=== PATIENT | female | born 1975 | race Caucasian/White ===

== ENCOUNTER 2020-04-15 13:19 | Outpatient (CLI) | payer OTHER, SELFPAY ==
--- NOTE | ~2020-04-15 | XR_ITS ---
XR lumbar spine 2-3V DATE: 04/15/2020 13:43 INDICATION: Low back pain, pain in coccyx after injury from fall TECHNIQUE: AP, lateral, coned lateral lumbosacral views COMPARISON: None FINDINGS: There are 6 functional lumbar vertebrae. No fracture or bone destruction or spondylolisthesis. The lumbar and lumbosacral interspaces are well preserved. The sacroiliac joints are intact. IMPRESSION: No evidence of lumbar spine fracture Reviewed, dictated and finalized at location A.
--- NOTE | ~2020-04-15 | XR_ITS ---
XR sacrum coccyx min 2V DATE: 04/15/2020 13:43 INDICATION: Low back pain and coccyx pain after injury from fall TECHNIQUE: AP, lateral, coned lateral lumbosacral views COMPARISON: None FINDINGS: The sacroiliac joints are intact. On the lateral view there appears to be a subtle linear lucency and slight displacement of the anteri or cortex of the fifth sacral segment, which may represent a subtle fracture. CT would be helpful to confirm or exclude fracture or dislocation. Otherwise no fracture or bone destruction of the sacrum or coccyx is evident. IMPRESSION: Cannot exclude subtle anterior cortical fracture of the fifth sacral segment; consider CT correlation Reviewed, dictated and finalized at location A. IMPRESSION: Cannot exclude subtle anterior cortical fracture of the fifth sacra l segment; consider CT correlation
== END 2020-04-15 13:20 | disposition home or self-care (01) ==
LOC: ANHIMG 13:25
PROVIDERS: PCP Family Medicine Adolescent Medicine; Visit Provider Family Medicine Adolescent Medicine
DX: M54.5 Low back pain (principal); W19.XXXA Unspecified fall, initial encounter
CPT/HCPCS: 72100; 72220

== ENCOUNTER 2020-06-25 11:06 | Outpatient (CLI) | payer OTHER, SELFPAY ==
--- NOTE | ~2020-06-25 | XR_ITS ---
EXAMINATION: XR sacrum coccyx min 2V DATE: 06/25/2020 11:24 INDICATION: Low back pain. TECHNIQUE: 3 views of the sacrum and coccyx were obtained. COMPARISON: Sacrum and coccyx radiographs 04/15/2020 FINDINGS: Bone alignment is normal. No fracture. There is mild osteoarthritis of the sacroiliac joint s. IMPRESSION: 1. Mild osteoarthritis of the sacroiliac joints. Reviewed, dictated and finalized at location A.
--- NOTE | ~2020-06-25 | XR_ITS ---
EXAMINATION: XR lumbar spine 2-3V DATE: 06/25/2020 11:24 INDICATION: Low back pain. TECHNIQUE: 3 views of lumbar spine were obtained. COMPARISON: Lumbar spine radiographs 04/15/2020 FINDINGS: Bone alignment is normal. Vertebral body heights and intervertebral disc heights are normal . There are endplate osteophytes at multiple levels. The facet joints are unremarkable. IMPRESSION: 1. Mild lumbar spondylosis. Reviewed, dictated and finalized at location A. IMPRESSION: 1. Mild lumbar spondylosis.
== END 2020-06-25 11:07 | disposition home or self-care (01) ==
PROVIDERS: PCP Family Medicine Adolescent Medicine; Visit Provider Family Medicine Adolescent Medicine
DX: M54.5 Low back pain (principal); M47.816 Spondylosis without myelopathy or radiculopathy, lumbar region; M47.898 Other spondylosis, sacral and sacrococcygeal region
CPT/HCPCS: 72100; 72220

== ENCOUNTER → 2021-03-07 07:18 | Outpatient (CLI) | payer OTHER, SELFPAY ==
[2021-03-07 19:48] LABS: SARS-CoV-2 RNA PCR Negative
== END ==
PROVIDERS: PCP Family Medicine Adolescent Medicine; Visit Provider Physician Assistant
DX: Z20.822 Contact with and (suspected) exposure to COVID-19 (principal); R05 Cough; J34.89 Other specified disorders of nose and nasal sinuses
CPT/HCPCS: C9803; U0003; U0005

== ENCOUNTER 2021-05-29 12:42 | Emergency (ER) | payer OTHER, SELFPAY ==
--- NOTE | ~2021-05-29 | XR_ITS ---
EXAMINATION: XR chest 2V DATE: 05/29/2021 13:29 INDICATION: Cough TECHNIQUE: PA and lateral views of the chest are obtained. COMPARISON: 10/12/2011 FINDINGS: The lungs are free of acute opacities. There is no pleural effusion or pneumothorax. The ca rdiomediastinal silhouette is normal. The visualized bones and soft tissues are unremarkable. IMPRESSION: 1. No acute cardiopulmonary abnormality. Reviewed, dictated and finalized at location B.
[2021-05-29 12:49] VITALS: BP 119/77; PULSE 82; RESP 16; TEMP 36.6; O2SAT 99
--- NOTE | 2021-05-29 13:07 | ED.URI ---
HPI - URI/Sore Throat General Chief Complaint: Upper Respiratory Infection Stated Complaint: Congestion,Cough Time Seen by Provider: 05/29/21 13:07 Source: patient and RN notes reviewed Mode of arrival: ambulatory Limitations: no limitations History of Present Illness HPI Narrative: 45-year-old female presents to the [facility] with complaints of cough,Sinus pressure, Sore throat and sinus congestion. states symptoms started 1.5 weeks ago and PCM gave her a Zpac. Called PCM yesterday due to still having a cough. PCM called in some Tessalon Perles for her. States she tried taking them last night with little to no relief. Patient is a smoker. Denies any chest pain. No abdominal pain, nausea, vomiting or diarrhea. Denies fevers. Related Data Home Medications Medication Instructions Recorded Confirmed benzonatate 200 mg PO TID 05/29/21 05/29/21 Allergies Allergy/AdvReac Type Severity Reaction Status Date / Time No Known Allergies Allergy Verified 05/29/21 13:18 Review of Systems Review of Systems: All systems reviewed & are unremarkable except as noted in HPI and below Constitutional: Constitutional: Reports as per HPI, Reports chills and Denies fever(s) Eyes: Eyes: Reports no additional eye complaints ENT: Reports as per HPI, Denies dizziness, Reports nasal congestion and Reports sore throat Cardiovascular: Cardiovascular: Reports no additional cardiovascular complaints and Denies chest pain Respiratory: Respiratory: Reports as per HPI, Reports chest congestion, Reports cough and Reports dyspnea Gastrointestinal: Gastrointestinal: Reports no additional gastrointestinal complaints, Denies abdominal pain, Denies nausea and Denies vomiting Musculoskeletal: Musculoskeletal: Reports no additional musculoskeletal complaints, Denies back pain, Denies myalgias and Denies muscle cramps Integumentary/Breasts: Skin/Breast: Reports system reviewed and no additional complaints, except as docu and Denies rash Neurologic: Reports system reviewed and no additional complaints, except as documented, Denies vertigo, Denies dizziness, Denies syncope, Denies headache(s), Denies focal weakness and Denies numbness Psychiatric: Psychiatric: Reports no additional psychiatric complaints Allergic/Immunologic: Allergic/Immunologic: Reports no additional allergic/immunologic complaints, Denies lip swelling, Denies throat swelling, Denies tongue swelling and Denies wheezing PMFSH Comments At the time of my signature, I reviewed and agree with the nursing past medical, surgical, social, and family history. There is no relevant family history pertinent to the patient complaint. Exam Const: General: no acute distress, alert and ill appearing acutely Nutritional Appearance: well nourished Orientation/consciousness: patient oriented x3 Limitations: no limitations HENMT: Head: normal to inspection Ears: external ears normal and TM's normal bilaterally General nose exam: Normal external nose present Face and sinus: normal facial exam and sinuses nontender Mouth: Yes lip normal Eyes: Conjunctivae: conjunctivae normal Pupils: Equal, round and reactive pupils present Neck: Neck: normal visual inspection, no lymphadenopathy and no meningeal signs Chest: Chest palpation & inspection: normal inspection of the chest Resp: Effort & Inspection: normal respiratory effort and no use of accessory muscles Auscultation: no crackles, no rales, no rhonchi, wheezes scattered wheezes and throughout and diminished lung sounds bilateral Cardio: Rate: regular rate Rhythm: regular rhythm GI: GI Palp: Yes Soft to palpation and No Tenderness to palpation present (GI) : General: Yes no CVA tenderness Back/Spine/Pelvis: Back: no CVA tenderness Skin: General skin exam: normal color Rashes: no rashes Neuro: General: patient oriented x3, moves all extremities, no meningeal signs and no focal motor deficits Speech: normal speech Gait exam (Neuro): Rizwana
[2021-05-29] MEDS: predniSONE 20 MG TABLET PO ×2 (13:30)
[2021-05-29] MEDS: ALBUTEROL SULFATE NEB 2.5 MG/3 ML INH INHALATION (13:30)
[2021-05-29] MEDS: IPRATROPIUM BR 0.02% INH SOLN 0.5 MG/2.5 ML VIAL INHALATION (13:30)
== END 2021-05-29 14:47 | disposition home or self-care (01) ==
PROVIDERS: Emergency Provider Nurse Practitioner; PCP Family Medicine Adolescent Medicine
DX: J40 Bronchitis, not specified as acute or chronic (principal)
CPT/HCPCS: 71046; 94640; 99213; G0463; J7512

== ENCOUNTER 2021-09-02 18:31 | Emergency (ER) | payer OTHER, SELFPAY ==
--- NOTE | ~2021-09-02 | XR_ITS ---
EXAMINATION: XR chest 2V EXAM DATE: 09/02/2021 20:20 INDICATION: Sometimes prod cough x 3 months . TECHNIQUE: Frontal and lateral projections of the chest obtained and reviewed. Comparison is made to prior examination from 05/29/2021. FINDINGS: The lungs are clear. There are no pleural effusions. The cardiomediastinal silhouette is within normal limits. There is no pneumothorax suspected. The bones and soft tissues are unremarkab le. IMPRESSION: Unremarkable chest x-ray exam. Reviewed, dictated and finalized at location A.
--- NOTE | ~2021-09-02 | XR_ITS ---
EXAMINATION: XR sinus <3V EXAM DATE: 09/02/2021 20:20 INDICATION: Cough x 4 months. TECHNIQUE: Sinuses frontal and lateral projections. There are no prior studies for comparison. FINDINGS: No evidence of appreciable sinus or mastoid opacity. Please note that mild sinus disease m ay not be detectable by this modality. There may be some dental caries. The orbits and soft tissues a re unremarkable. IMPRESSION: 1. No evidence of sinus disease. Reviewed, dictated and finalized at location A.
[2021-09-02 18:49] VITALS: BP 105/73; PULSE 78; RESP 16; TEMP 36.3; O2SAT 100
--- NOTE | 2021-09-02 20:15 | ED.URI ---
HPI - URI/Sore Throat General Chief Complaint: Upper Respiratory Infection Stated Complaint: cough/sob/cp Source: patient and RN notes reviewed Limitations: no limitations History of Present Illness HPI Narrative: The vaccinated patient, who is a >1ppd smoker/nondrinker presents with persistent cough. Patient states she has had half week worsening of 2-3month history since May of cough symptoms are mild unrelieved with a steroid taper [that she is on now], inhalers, and several antibiotic courses [she recalls Amoxil, Z-Mike, Levaquin, DCN] symptoms are mild associated with clavicular chest pain when she breathes or has cough. No med noncompliance, fever measured, loss of taste/smell, CP, calf pain/edema, S OB, vomiting/diarrhea- there is mild associated hoarseness . Discussed will add new nebulized med, symptomatic antitussives; Emphasized to get scheduled PFTs, follow-up. Related Data Home Medications Medication Instructions Recorded Confirmed benzonatate 200 mg PO TID 05/29/21 05/29/21 bupropion HCl PO 09/02/21 09/02/21 Allergies Allergy/AdvReac Type Severity Reaction Status Date / Time No Known Allergies Allergy Verified 05/29/21 13:18 Review of Systems Review of Systems: General/Constitutional: No weight loss,fever Eyes: N0: Redness,discharge Ears/Nose/Throat: No: Epistaxis,ear discharge Respiratory: Denies: Hemoptysis Gastrointestinal: No Vomiting, Bleeding-rectal Skin: No Lumps, eruption Neurologic: No Focal Weakness,Sz Hematologic: Denies: Petechiae/Purpura Psychiatric: No: Suicida ideationl All Other Systems: Reviewed and Negative PMFSH Comments At time of signature, agree with nursing past medical, surgical, social and family history. There is no relevant family history pertinent to the presenting complaint Exam Narrative: General Appearance: Well appearing, Well nourished EYE: PERRLA, Conjunctiva clear Ears: Auditory canal normal, TM normal Nose: Rhinorrhea, Mucousal erythema Mouth/Throat: MM moist, Uvula midline, Pharyngeal erythema Neck: Supple, No adenopathy Respiratory: No respiratory distress, increased AP diameter, decreased BS at bases, distant BS CTA Cardiovascular: RRR, No JVD Musculoskeletal: Non tender, Normal strength Skin: Warm, Dry Neurological: A&O x3, CN II-XII intact Psychiatric: Normal mood, Normal affect Course Vital Signs Vital signs: Vital Signs Temperature 97.3 F L 09/02/21 18:49 Pulse Rate 78 09/02/21 18:49 Respiratory Rate 16 09/02/21 18:49 Blood Pressure 105/73 09/02/21 18:49 Pulse Oximetry 100 09/02/21 18:49 Temperature 97.3 F L 09/02/21 18:49 Pulse Rate 78 09/02/21 18:49 Respiratory Rate 16 09/02/21 18:49 Blood Pressure 105/73 09/02/21 18:49 Pulse Oximetry 100 09/02/21 18:49 MDM - URI/Sore Throat Lab Data Labs: Lab Results 09/02/21 Range/Units 19:20 POC SARS CoV-2 Ag Negative (Negative) Discharge Plan Discharge Clinical Impression: COPD with acute bronchitis Patient Disposition: Home, Self-Care Condition: Stable Instructions: Chronic Cough (ED) Additional Instructions: You may continue your dose inhalers, and finish your steroids See pulmonary in follow-up, with the scheduled PFTs Prescriptions: New ipratropium-albuterol 0.5 mg-3 mg(2.5 mg base)/3 mL solution for nebulization 3 ml inhalation QID PRN (Reason: shortness of breath or wheezing) Qty: 15 RF: 3 benzonatate [Tessalon Perles] 100 mg capsule 100 mg PO TID Qty: 20 RF: 1 montelukast [Singulair] 10 mg tablet 10 mg PO QPM Qty: 20 RF: 2 codeine-guaifenesin 10-100 mg/5 mL liquid 7.5 ml PO Q6H PRN (Reason: cough) Qty: 118 RF: 0 No Action benzonatate 200 mg capsule 200 mg PO TID RF: 0 prednisone 20 mg tablet See Rx Instructions .ROUTE .COMPLEX Qty: 10 RF: 0 albuterol sulfate 90 mcg/actuation HFA aerosol inhaler 2 puff inhalation QID PRN (Reason: shortness of breath or wheez
== END 2021-09-02 21:15 | disposition home or self-care (01) ==
PROVIDERS: Emergency Provider Emergency Medicine; PCP Family Medicine Adolescent Medicine
DX: J44.9 Chronic obstructive pulmonary disease, unspecified (principal); Z20.822 Contact with and (suspected) exposure to COVID-19; F17.200 Nicotine dependence, unspecified, uncomplicated
CPT/HCPCS: 70210; 71046; 87426; 99213; C9803; G0463

== ENCOUNTER 2021-09-15 08:40 | Outpatient (CLI) | payer OTHER, SELFPAY ==
--- NOTE | 2021-09-15 15:07 | WPDPFTINT ---
PFT Procedure Performed PFT Procedure Performed Spirometry with Pre/Post Bronchodilator Plethysmography (Lung Vol) Diffusing Cap (DLCO) Flow Vol Loop PFT Interpretation This is a pulmonary function test with pre and post-bronchodilator spirometry, plethysmography and diffusing capacity. The test was performed and results interpreted in accordance with the 2019 and 2005 ATS/ERS Task Force guidelines respectively using the Global Lung Function Initiative-2012 reference equations. Patient demonstrated good effort and cooperation. Reproducibility criteria were met. The quality of the pre bronchodilator spirometry maneuver was Grade B and post bronchodilator spirometry maneuver was Grade A. Findings: Spirometry: There is decreased maximal expiratory airflow at all lung volumes with a concave expiratory flow tracing. The contour of the inspiratory flow tracing is normal. The pre bronchodilator FVC is 3.11 L, 86% predicted. The pre bronchodilator FEV1 is 2.03 L, 69% predicted. The FEV1: FVC ratio is 65%. The post bronchodilator FVC is 3.19 L, representing a 3% increase. The post bronchodilator FEV1 is 2.18 L, representing an 8% increase. Plethysmography: The total lung capacity is 4.50 L, 89% predicted. The functional residual capacity is 2.55 L, 90% predicted. The residual volume is 1.39 L, 83% predicted. Diffusing capacity: The absolute diffusion capacity is 14.7, 63% predicted. The diffusing capacity corrected for alveolar volume is 3.24, 69% predicted. Impression: There is a moderate obstructive abnormality without significant improvement after inhaling a single dose of albuterol. The lung volumes are normal. The absolute diffusing capacity is mildly decreased and remains mildly decreased when corrected for alveolar volume. There are no prior studies for comparison
== END 2021-09-15 08:41 | disposition home or self-care (01) ==
LOC: ANHPFT 08:40
PROVIDERS: PCP Family Medicine Adolescent Medicine; Visit Provider Family Medicine Adolescent Medicine
DX: R05.9 Cough, unspecified (principal); R06.02 Shortness of breath; R94.2 Abnormal results of pulmonary function studies
CPT/HCPCS: 94060; 94726; 94729

== ENCOUNTER 2022-05-30 13:49 | Emergency (ER) | payer OTHER, SELFPAY ==
--- NOTE | ~2022-05-30 | XR_ITS ---
EXAM: XR hand RT min 3V DATE: 05/30/2022 14:34 HISTORY: pain rt 1st and 2nd mcp joint area s/p injury yest . COMPARISON: None available. FINDINGS: Normal mineralization. No fracture or dislocation. No lytic or blastic lesion. Joint space s are maintained. No erosion or periosteal change. Soft tissues within normal limits. IMPRESSION: No acute osseous finding in the right hand. Reviewed, dictated and finalized at location K.
[2022-05-30 14:15] VITALS: BP 119/78; PULSE 64; RESP 16; TEMP 36.7; O2SAT 99
--- NOTE | 2022-05-30 14:40 | ED.UPPEXIN ---
HPI - Extremity Injury (Upper) General Chief Complaint: Extremity Injury, Upper Stated Complaint: RIGHT HAND PAIN Time Seen by Provider: 05/30/22 14:15 Source: patient Mode of arrival: ambulatory Limitations: no limitations History of Present Illness HPI narrative: Ms. Valladares is a 46-year-old female patient presenting to the clinic today with complaints of right hand injury after a couch fell on her hand yesterday. She reports that the right hand became swollen just under the fourth and fifth knuckles with bruising noted last night after injury. States she was moving a couch when this occurred Related Data Home Medications Medication Instructions Recorded Confirmed clobetasol 0.05 % topical ointment 1 ea topical DAILY 05/30/22 05/30/22 tacrolimus 0.1 % topical ointment 1 ea topical DAILY 05/30/22 05/30/22 triamcinolone acetonide 0.1 % 1 applic topical DAILY 05/30/22 05/30/22 topical cream Allergies Allergy/AdvReac Type Severity Reaction Status Date / Time No Known Allergies Allergy Verified 05/30/22 14:27 Review of Systems Review of Systems: Pertinent positives per HPI. Patient denies any fever, chills, rash, headache, visual changes, dizziness, cough, runny nose, sore throat, shortness of breath, chest pain, palpitations, nausea, vomiting, diarrhea, constipation, abdominal pain, or any urinary issues. PMFSH Comments At the time of my signature, I reviewed and agree with the nursing past medical, surgical, social, and family history. There is no relevant family history pertinent to the patient complaint. Exam Narrative: General: Well-developed, well nourished, in no apparent distress Head: Normocephalic, atraumatic. Cardio: Regular rate and rhythm, s1 and s2 normal, no murmur appreciated. Resp: Clear to auscultation bilaterally, no rhonchi, rales, wheezing or rubs. Musculoskeletal: No deformity,tender to palpation over the fourth and fifth metatacarpal, mild bruising and swelling noted over the fourth and fifth metacarpal pain with flexion and extension of the fourth and fifth finger, normal range of motion, muscle strength strong and equal, peripheral pulse strong, no edema, no cyanosis, normal gait and station Course Course Emergency Course: Portions of this record may have been created with voice recognition software. Level of Care: Express Care Visit Vital Signs Vital signs: Vital Signs Temperature 36.7 C 05/30/22 14:15 Pulse Rate 64 05/30/22 14:15 Respiratory Rate 16 05/30/22 14:15 Blood Pressure 119/78 05/30/22 14:15 Pulse Oximetry 99 05/30/22 14:15 Oxygen Delivery Room Air 05/30/22 14:15 Temperature 36.7 C 05/30/22 14:15 Pulse Rate 64 05/30/22 14:15 Respiratory Rate 16 05/30/22 14:15 Blood Pressure 119/78 05/30/22 14:15 Pulse Oximetry 99 05/30/22 14:15 Oxygen Delivery Room Air 05/30/22 14:15 Vital signs reviewed MDM - Extremity Injury (Upper) MDM Narrative Medical decision making narrative: At the time of visit patient is resting comfortably on the exam table. She has pain over the fourth and fifth metacarpal. X-ray was performed and was negative for any fracture. I suspect patient has soft tissue injury. Supportive measures were discussed with the patient she voiced understanding of discharge instructions and agrees to treatment plan. Differential Diagnosis Differential diagnosis: Likely fracture of hand and other (Soft tissue injury, contusion) Imaging Data Attestation: I personally reviewed and interpreted this imaging study as follows: My impression: Negative for fracture of the right hand Radiologist's impression: Close Hand X-Ray (Signed) Jace Underwood - 05/30/22 Launch?[facility] [address] [place] [address] XRay Report Signed Patient: Olimpia Valladares : 1975 MR#: [id number] Age/Sex: 46 / F Acct:[id number] Loc: EXPCOLL? ? AD
== END 2022-05-30 15:00 | disposition home or self-care (01) ==
PROVIDERS: Emergency Provider Nurse Practitioner Family; PCP Family Medicine Adolescent Medicine
DX: S69.91XA Unspecified injury of right wrist, hand and finger(s), initial encounter (principal); W08.XXXA Fall from other furniture, initial encounter
CPT/HCPCS: 73130; 99213; G0463

== ENCOUNTER 2024-02-26 13:19 | Emergency (ER) | payer BC, SELFPAY ==
[2024-02-26 13:30] VITALS: BP 134/78; PULSE 80; RESP 18; TEMP 36.6; O2SAT 100
--- NOTE | 2024-02-26 13:32 | ED.GENADULT ---
HPI - General Adult General Chief complaint: Dental/Oral Stated complaint: Sinus Time Seen by Provider: 02/26/24 13:33 Source: patient Mode of arrival: ambulatory History of Present Illness HPI narrative: 48 y/o female presented for c/o left sided facial swelling and sinus pressure. Onset this morning. Endorses pressure behind eyes and above teeth. States she has had sinus congestion and pressure for about 2 weeks, unrelieved with Sudafed and Mucinex. Reports left upper dental pain yesterday, to a broken tooth. States today the pain is gone but the swelling over the site is noted. Related Data Home Medications Medication Instructions Recorded Confirmed triamcinolone acetonide 0.1 % 1 applic topical DAILY 05/30/22 02/26/24 topical cream Allergies Allergy/AdvReac Type Severity Reaction Status Date / Time No Known Allergies Allergy Verified 02/26/24 13:20 Review of Systems Review of Systems: CONSTITUTIONAL: Denies body aches, fever, chills ENT: reports some rhinorrhea, congestion, facial swelling and sinus pain, dental pain. CARDIOVASCULAR: Denies chest pain, palpitations RESPIRATORY: Denies cough or dyspnea. SKIN: Denies rash, itching, or wounds. MUSCULOSKELETAL: Denies myalgia. NEUROLOGIC: Denies headache, numbness, tingling, or weakness. [facility] Surgical History Surgical History History of tubal ligation Social History Social History Smoking status: Smoker, status unknown Lack of Transportation: No Lack of Food: Never True Current Housing: I Have Housing Concerned About Future Housing: No Difficulty Paying Gas/Electric Bills: No Difficulty Paying for Meds: No Currently Unemployed: No Education: High School Diploma/GED Difficulty w/ Childcare or Family Care: No Comments At time of signature, I have reviewed and agree with nursing past medical, surgical, social and family history unless otherwise noted. Please see nursing chart for further information. There is no relevant family history pertinent to the presenting complaint Exam Narrative: GENERAL: Appears in pain; no acute distress. HEAD: Normocephalic, atraumatic. EYES: EOMI. No redness or drainage. Conjunctivae normal. Left lower eye swelling; no occlusion. Mild swelling to left maxilla and left mandible. ENT: Dental pain location of #13, broken tooth with gum swelling and abscess noted, no drainage. Mucous membranes pink and moist. TMs normal bilaterally. Throat normal. Uvula midline. NECK: Normal AROM. No lymphadenopathy. CHEST: No respiratory distress. Clear to auscultation. HEART: Regular rate and rhythm. No murmur appreciated. SKIN: Warm, dry, no rash. Normal skin turgor. NEURO: No focal deficits. Alert and oriented x3. Gait steady. HENMT: Head images: 1. area of mild swelling Course Course Emergency Course: Patient is aware of diagnosis, understands and agrees to treatment plan. Anticipatory guidance given. Patient agrees to follow-up as directed and is aware of reasons to seek care at the emergency department. Portions of this record may have been created with voice recognition software Level of Care: Express Care Visit Vital Signs Vital signs: Vital Signs Temperature 97.8 F 02/26/24 13:30 Pulse Rate 80 02/26/24 13:30 Respiratory Rate 18 02/26/24 13:30 Blood Pressure 134/78 02/26/24 13:30 Pulse Oximetry 100 02/26/24 13:30 Oxygen Delivery Room Air 02/26/24 13:30 Temperature 97.8 F 02/26/24 13:30 Pulse Rate 80 02/26/24 13:30 Respiratory Rate 18 02/26/24 13:30 Blood Pressure 134/78 02/26/24 13:30 Pulse Oximetry 100 02/26/24 13:30 Oxygen Delivery Room Air 02/26/24 13:30 Medical Decision Making MDM Narrative Medical decision making narrative: Discussed physical exam findings c/w sinusitis and left upper dental abscess. Rx's re
== END 2024-02-26 13:45 | disposition home or self-care (01) ==
PROVIDERS: Emergency Provider Nurse Practitioner Family; PCP Family Medicine Adolescent Medicine
DX: J32.9 Chronic sinusitis, unspecified (principal); K04.7 Periapical abscess without sinus
CPT/HCPCS: 99213; G0463

== ENCOUNTER 2025-09-18 18:34 | Emergency (ER) | payer OTHER, SELFPAY ==
--- NOTE | ~2025-09-18 | XR_ITS ---
XR ankle LT min 3V INDICATION: pain to ankle . COMPARISON: None. FINDINGS: Frontal, lateral and oblique views of the left ankle demonstrate no acute fracture or dislocation. The ankle mortise is intact. IMPRESSION: No acute fracture or dislocation. Reviewed, dictated and finalized at location S.
[2025-09-18 18:35] VITALS: BP 146/82; PULSE 82; RESP 18; TEMP 36.6; O2SAT 100
--- NOTE | 2025-09-18 19:16 | ED_ITS ---
HPI - Extremity Problem General Chief complaint: Extremity Problem,Nontraumatic Stated complaint: Left Ankle Pain Time Seen by Provider: 09/18/25 19:00 Source: patient, RN notes reviewed and old records reviewed Mode of arrival: ambulatory Limitations: no limitations History of Present Illness HPI Narrative: 49 year old female who presents to [facility] care with complaints of pain to her left anterior ankle after tripped on couch and twisted ankle and fell onto ankle on Wednesday. Patient describes pain and burning and shooting with some radiation of pain into lower lower leg and to the top of her left foot. Patient reports that pain increases with ambulation and standing. She has been taking Tylenol for her pain used ice and has been elevating her left ankle as much as possible. No brusing or any open skin area or abrasion does have some swelling along talus region of her left ankle. MD Complaint: extremity swelling and other (left anterolateral ankle pain) Onset (ago): day(s) (wednesday 2 days ago) Location: lower extremity (left ankle) Severity scale (1-10): 7 Quality: burning and other (throbbing, shooting pain) Exacerbating factors: weight bearing and other (standing) Related Data Home Medications ?Medication ?Instructions ?Recorded ?Confirmed ?Last Taken ?Type triamcinolone acetonide 0.1 % 1 applic topical DAILY 0 05/30/22 11/16/24 Unknown History topical cream Allergies Allergy/AdvReac Type Severity Reaction Status Date / Time No Known Allergies Allergy Verified 09/18/25 19:04 Review of Systems 2 Review of Systems: CONSTITUTIONAL: Denies fever, chills, or sweats. EYES: Denies visual changes, redness, or discharge. ENT: Denies rhinorrhea, congestion, sore throat, or otalgia. CARDIOVASCULAR: Denies chest pain, palpitations, or edema. RESPIRATORY: Denies cough or dyspnea. GASTROINTESTINAL: Denies abdominal pain, nausea, vomiting, or diarrhea. GENITOURINARY: Denies dysuria or hematuria. SKIN: Denies rash or itching. MUSCULOSKELETAL: Denies back pain,positive for pain to the left anterior lateral ankle, or myalgia. NEUROLOGIC: Denies headache, numbness, or weakness. PSYCHIATRIC: positive history of anxiety or depression. All systems reviewed & are unremarkable except as noted in HPI and below [facility] Past Medical History Medical History (Updated 09/19/25 @ 19:50 by Yasmeen Hernandez APRN) Anxiety GERD (gastroesophageal reflux disease) COPD (chronic obstructive pulmonary disease) Bronchitis Asthma Surgical History Surgical History History of tubal ligation Social History Social History (Updated 09/19/25 @ 19:46 by Yasmeen Hernandez APRN) Smoking status: Current every day smoker Tobacco type: cigarettes Alcohol intake: current Alcohol use details: social Substance use type: does not use Lack of Transportation: No Lack of Food: Never True Current Housing: I Have Housing Concerned About Future Housing: No Difficulty Paying Gas/Electric Bills: No Difficulty Paying for Meds: No Currently Unemployed: No Education: High School Diploma/GED Difficulty w/ Childcare or Family Care: No Living arrangements: with family Gender identity (if verbalized by the patient): Female Comments At time of signature, agree with nursing past medical, surgical, social and family history. There is no relevant family history pertinent to the presenting complaint Exam Narrative: GENERAL: Well-appearing, well-nourished, and in no acute distress. HEAD: Normocephalic, atraumatic. EYES: PERRLA and EOMI. ENT: Nares clear, no rhinorrhea or epistaxis. Mucous membranes moist.TMs normal throat pink without exudates or swelling NECK: Supple. no lymphadenopathy CHEST: Clear to auscultation. No respiratory distress. no cough or dyspnea noted SAO2 100% on room air HEART: Regular rate and rhythm. No murmur heard. Normal peripheral pulses. ABDOMEN: Soft, nontender, nondistended, normal active bowel sounds. EXTREMITIES: Normal range of motion. No edema. Exception noted to some edema to anterior lateral left ankle which reported shoot up into lower leg and down into foot, strong pedal pulse,mobility of foot and ankle with discomfort, sensation is intact to left foot and toes.No bruising or abrasions noted. SKIN: Warm, dry, no rash. NEURO: No focal deficits. Alert and oriented x3. Course Course Emergency Course: Patient is aware of diagnosis, understands and agrees to treatment plan.? Anticipatory guidance given.? Patient agrees to follow-up as directed and is aware of reasons to seek care at the emergency department. Portions of this record may have been created with voice recognition software [employer] of Care: [facility] Visit Vital Signs Vital signs: Vital Signs Temperature 36.6 C 09/18/25 18:35 Pulse Rate 82 09/18/25 18:35 Respiratory Rate 18 09/18/25 18:35 Blood Pressure 146/82 H 09/18/25 18:35 Pulse Oximetry 100 09/18/25 18:35 Oxygen Delivery Room Air 09/18/25 18:35 Temperature 36.6 C 09/18/25 18:35 Pulse Rate 82 09/18/25 18:35 Respiratory Rate 18 09/18/25 18:35 Blood Pressure 146/82 H 09/18/25 18:35 Pulse Oximetry 100 09/18/25 18:35 Oxygen Delivery Room Air 09/18/25 18:35 Reviewed MDM - Extremity (Nontraumatic) Differential Diagnosis Differential diagnosis: Likely other (left ankle pain, left ankle fracture, contusion to left ankle, swelling to left anteior lateral ankle) Medical Records Attestation: I reviewed the patient's medical records. Imaging Data Attestation: I personally reviewed and interpreted this imaging study as follows: My impression: No acute fracture or dislocation Radiologist's impression: [facility] [address] [place] [address] XRay Report Signed Patient: Olimpia Valladares : 1975 MR#: [id number] Age: 49 Acct:[id number] Loc: [facility] ADM Date: 09/18/[address]: Ordering Physician: Yasmeen Hernandez APRN Date of Service: 09/18/25 Procedure(s): XR ankle LT min 3V Accession Number(s): [id number] cc: Yasmeen Hernandez APRN; Panda Mercedes MD~ XR ankle LT min 3V INDICATION: pain to ankle . COMPARISON: None. FINDINGS: Frontal, lateral and oblique views of the left ankle demonstrate no acute fracture or dislocation. The ankle mortise is intact. IMPRESSION: No acute fracture or dislocation. Reviewed, dictated and finalized at location S. Please be advised this is a medical document. It is intended for [id number] communication. It is written in medical language and may contain unfamiliar abbreviations or verbiage. Medical documents are intended to carry relevant information, facts as evident, and the clinical opinion of the practitioner at the time of the encounter. This report may have been done utilizing a voice recognition system. Attempts have been made to correct errors. However, there may be uncorrected grammatical, spelling, and recognition errors present. The file time of this note does not necessarily represent the time of service. Dictated By: Patrice Call MD 09/18/25 9717 Signed By: <Electronically signed by Patrice Call MD in OV> Critical Care Time Critical Care Time Critical Care Time: No Discharge Plan Discharge Clinical Impression: Contusion of left ankle or foot Left ankle pain Qualifiers: Chronicity: acute Qualified Code(s): M25.572 - Pain in left ankle and joints of left foot Patient Disposition: Home Condition: Stable Instructions: Contusion in Adults (ED), Arthralgia (ED) Additional Instructions: Elastic wrap or orthopedic splint as directed for comfort for the next 5-7 days Crutches as directed if needed Tylenol for lesser pain Ibuprofen regularly for the next 2-3 days for the inflammation Follow-up with orthopedic surgeon as arranged Follow-up with PCP if further problems or concerns Ice to the area 20-30 minutes 4-6 times a day Elevate above heart If your symptoms persist, change or worsen significantly before you can contact your personal physician then please, without delay, go to the emergency department for further evaluation. Follow-up with PCP in 7-10 days or sooner if needed Follow up with PCP soon in regards to your blood pressure which is elevated above threshold for referral. Blood pressure above 120/80 may indicate pre- hypertension.146/ Patient Language: Wallisian Prescriptions: No Action triamcinolone acetonide 0.1 % cream 1 applic TOPICAL DAILY fluticasone propionate 50 mcg/actuation spray,suspension 2 spray intranasal DAILY Qty: 16 5RF Rx Instructions: administer into each nostril pantoprazole 40 mg tablet,delayed release (DR/EC) 40 mg PO QPM Qty: 90 3RF budesonide-formoterol [Symbicort] 160-4.5 mcg/actuation HFA aerosol inhaler See Rx Instructions .ROUTE .COMPLEX Qty: 11 5RF Dose Instruction: INHALE 2 PUFFS BY MOUTH EVERY 12 HOURS Rx Instructions: INHALE 2 PUFFS BY MOUTH EVERY 12 HOURS albuterol sulfate 90 mcg/actuation HFA aerosol inhaler See Rx Instructions .ROUTE .COMPLEX Qty: 9 5RF Dose Instruction: INHALE 2 PUFFS BY MOUTH 4 TIMES DAILY NEEDED FOR SHORTNESS OF BREATH AND FOR WHEEZING Rx Instructions: INHALE 2 PUFFS BY MOUTH 4 TIMES DAILY NEEDED FOR SHORTNESS OF BREATH AND FOR WHEEZING tizanidine 4 mg tablet 4 mg PO TID PRN (Reason: muscle spasticity) Qty: 30 2RF Follow-up/Referrals: Panda Mercedes MD [Primary Care Provider, [facility]] Time of Disposition: 19:24 Quality Jt Coma Scale Eyes: Open Verbal: Oriented and Alert Motor: Follows Commands Jt Coma Total Score: 15
== END 2025-09-18 19:34 | disposition home or self-care (01) ==
PROVIDERS: Emergency Provider Registered Nurse; PCP Family Medicine Adolescent Medicine
DX: S90.02XA Contusion of left ankle, initial encounter (principal); S90.32XA Contusion of left foot, initial encounter; J44.9 Chronic obstructive pulmonary disease, unspecified; F17.210 Nicotine dependence, cigarettes, uncomplicated; W01.0XXA Fall on same level from slipping, tripping and stumbling without subsequent striking against object, initial encounter
CPT/HCPCS: 73610; 99213; G0463